=== PATIENT | female | born 1955 | race Caucasian/White ===

== ENCOUNTER → 2018-01-15 | Outpatient (CLI) | payer OTHER ==
--- NOTE | 2018-01-15 09:19 | RAD ---
Three-view lumbar spine series History: Back pain. Disability determination. Comparison: CT study of the abdomen and pelvis dated April 02, 2013. Findings: There is a mild compression deformity of the L4 vertebral body which is new from the old CT study. However, that study is almost 5 years old and therefore the compression fracture is indeterminate with regard to acuteness. No discitis or osteolytic process or anterolisthesis is seen. There is degenerative endplate spurring and disc space narrowing at L1-2 and L2-3 and L3-4 and L4-5 and L5-S1. The transverse processes are intact. Surgical clips are seen within the upper abdomen. Anastomosis is present here as well. IMPRESSION: Mild compression fracture of L4 which is new since 2012. Mild to moderate degenerative lumbar spondylosis.
--- NOTE | 2018-01-15 09:21 | RAD ---
Two-view right knee study History: Right knee pain. Disability determination. Findings: No acute fracture or dislocation or osteolytic process is evident. There is mild joint space narrowing and spurring of the medial and lateral tibiofemoral joint compartments and the patellofemoral joint compartment. Small subchondral radiolucency of the upper patella is seen. This may represent a subchondral cyst secondary to chondromalacia patellae. There is no significant swelling of the suprapatellar bursa to indicate a joint effusion radiographically. IMPRESSION: Tricompartmental primary degenerative osteoarthritis.
== END | disposition home or self-care (01) ==
LOC: DXRAD 08:35
PROVIDERS: ATTEND Neuromusculoskeletal Medicine, Sports Medicine
DX: Z02.71 Encounter for disability determination (principal); M17.11 Unilateral primary osteoarthritis, right knee; M48.56XD Collapsed vertebra, not elsewhere classified, lumbar region, subsequent encounter for fracture with routine healing
CPT/HCPCS: 72100; 73560

== ENCOUNTER 2020-03-11 15:19 | Observation (INO) | payer MEDICARE, OTHER ==
[~2020-03-11] VITALS: Ht 162.6 cm; Wt 91.0 kg
[2020-03-11] MEDS ORDERED: ONDANSETRON PF 4 MG/2 ML VIAL. ONE (15:34)
[2020-03-11] MEDS ORDERED: IV NORMAL SALINE 1,000ML 1,000 ML IV SCH (15:35)
--- NOTE | 2020-03-11 15:40 | PHYS DOC ---
Past History Past Medical History: Cancer (Ovarian), Diabetes, High Cholesterol Past Surgical History: Hysterectomy, Knee Replacement Additional Past Surgical Histo: Subtotal colectomy Smoking: Non-smoker General Adult EDM: Chief Complaint: NAUSEA/VOMITING/DIARRHEA HPI: HPI: Patient is a 64-year-old female presents to the emergency department for evaluation. She states she has had recurrent episodes of vomiting and diarrhea, which have been ongoing for over a year, but she states her symptoms began getting bad again last night. Patient states that she called her PCP who referred her to emergency department for evaluation and possible admission. The patient denies any particular pain, denies any recent fevers, chills, bloody emesis or bloody stools. There are no alleviating or exacerbating factors to her symptoms. Review of Systems: Review of Systems: Constitutional: Denies fever or chills Eyes: Denies change in visual acuity HENT: Denies nasal congestion or sore throat Respiratory: Denies cough or shortness of breath Cardiovascular: Denies chest pain or edema GI: As per HPI : Denies dysuria Musculoskeletal: Denies back pain or joint pain Integument: Denies rash Neurologic: Denies headache, focal weakness or sensory changes Endocrine: Denies polyuria or polydipsia Lymphatic: Denies swollen glands Psychiatric: Denies depression or anxiety Heart Score: Risk Factors: Risk Factors: DM, Current or recent (<one month) smoker, HTN, HLP, family history of CAD, obesity. Risk Scores: Score 0 - 3: 2.5% MACE over next 6 weeks - Discharge Home Score 4 - 6: 20.3% MACE over next 6 weeks - Admit for Clinical Observation Score 7 - 10: 72.7% MACE over next 6 weeks - Early Invasive Strategies Current Medications: Current Meds: Current Medications Medications (Trade) Dose Ordered Sig/Cat Start Time Stop Time Status Last Admin Dose Admin Ondansetron HCl (Zofran) 4 mg STK-MED ONCE 03/11/20 15:34 03/11/20 15:34 DC Physical Exam: PE: PHYSICAL EXAM: CONSTITUTIONAL: Well developed, well nourished HEAD: normocephalic, atraumatic EENT: PERRL, EOMI. Conjunctivae normal color, sclerae non-icteric; moist mucous membranes. NECK: Supple, non-tender; no meningismus. LUNGS: Lungs CTA, breathing even and unlabored. Normal air movement. HEART: Regular rate and rhythm, no murmur CHEST: No deformity; non-tender ABDOMEN: The abdomen is soft, there is diffuse tenderness to palpation of the entire abdomen without focal tenderness, rebound, guarding, bowel sounds are present EXTREM: Normal ROM; no deformity, no calf tenderness. Normal pulses palpable in all extremities. There is no pedal edema. SKIN: No rash; no diaphoresis NEURO: Alert; normal speech and cognition; CN's grossly intact; strength grossly intact without focal deficit. BACK: No CVA TTP. Current Patient Data: Labs: Laboratory Tests Test 03/11/20 15:29 03/11/20 15:40 White Blood Count 8.1 x10^3/uL Red Blood Count 4.19 x10^6/uL Hemoglobin 12.2 g/dL Hematocrit 37.0 % Mean Corpuscular Volume 88 fL Mean Corpuscular Hemoglobin 29 pg Mean Corpuscular Hemoglobin Concent 33 g/dL Red Cell Distribution Width 13.4 % Platelet Count 277 x10^3/uL Neutrophils (%) (Auto) 66 % Lymphocytes (%) (Auto) 26 % Monocytes (%) (Auto) 5 % Eosinophils (%) (Auto) 3 % Basophils (%) (Auto) 0 % Neutrophils # (Auto) 5.4 x10^3uL Lymphocytes # (Auto) 2.1 x10^3/uL Monocytes # (Auto) 0.4 x10^3/uL Eosinophils # (Auto) 0.2 x10^3/uL Basophils # (Auto) 0.0 x10^3/uL Sodium Level 140 mmol/L Potassium Level 4.2 mmol/L Chloride Level 100 mmol/L Carbon Dioxide Level 28 mmol/L Anion Gap 12 Blood Urea Nitrogen 20 mg/dL Creatinine 1.0 mg/dL Estimated GFR (Cockcroft-Gault) 56.2 BUN/Creatinine Ratio 20 Glucose Level 143 mg/dL Lactic Acid Level 1.6 mmol/L Calcium Level 9.4 mg/dL Total Bilirubin 0.4 mg/dL Aspartate Amino Transf (AST/SGOT) 34 U/L Alanine Aminotransferase (ALT/SGPT) 30 U/L Alkaline Phosphatase 115 U/L Total Protein 8.2 g/dL Albumin 3.9 g/dL Albumin/Globulin Ratio 0.9 Lipase 235 U/L Urine Collection Type Unknown Urine Color Yellow Urine Clarity Clear Urine pH 5.5 Urine Specific [place] <=1.005 Urine Protein Neg Urine Glucose (UA) Neg mg/dL Urine Ketones (Stick) Neg mg/dL Urine Blood Neg Urine Nitrite Neg Urine Bilirubin Neg Urine Urobilinogen Dipstick 0.2 mg/dL Urine Leukocyte Esterase Trace Urine RBC 0 /HPF Urine WBC 1-4 /HPF Urine Squamous Epithelial Cells Occ /LPF Urine Bacteria Few /HPF Urine Hyaline Casts Few /HPF Urine Mucus Slight /LPF Current Medications Medications (Trade) Dose Ordered Sig/Cat Route PRN Reason Start Time Stop Time Status Last Admin Dose Admin Ondansetron HCl (Zofran) 4 mg STK-MED ONCE .ROUTE 03/11/20 15:34 03/11/20 15:34 DC Ondansetron HCl (Zofran) 4 mg 1X ONCE IVP 03/11/20 15:45 03/11/20 15:49 DC 03/11/20 15:43 Sodium Chloride 1,000 ml @ 1,000 mls/hr 1X ONCE IV 03/11/20 15:45 03/11/20 16:44 UNV Sodium Chloride 1,000 ml @ 1,000 mls/hr Q1H IV 03/11/20 15:35 03/11/20 16:34 03/11/20 15:40 EKG: EKG: Normal sinus rhythm with a normal rate, normal axis, normal intervals, there are no acute ischemic ST/T changes. [] Radiology/Procedures: Radiology/Procedures: PROCEDURE: CT ABDOMEN PELVIS WO CONTRAST EXAM: CT Abdomen and Pelvis without IV contrast CLINICAL HISTORY: Abdominal pain, nausea, vomiting, diarrhea. COMPARISON: none TECHNIQUE: Helical CT of the abdomen and pelvis was performed without the administration of IV contrast. Axial, coronal and sagittal reformatted images were generated. ---PQRS compliance statement - One or more of the following individualized dose reduction techniques were utilized for this study: 1. Automated exposure control 2. Adjustment of the mA and/or kV according to patient size 3. Use of iterative reconstruction technique--- FINDINGS: Lack of intravenous contrast limits evaluation of solid organs, vasculature, and lymph nodes. Lower chest: Linear opacities are seen in the right greater than left lower lobes likely scarring/atelectasis. Heart is not enlarged. Coronary calcifications are seen. Abdomen and pelvis: Liver and biliary system: No focal liver lesion. There is been a cholecystectomy. No biliary ductal dilatation. Spleen: Unremarkable Pancreas: Unremarkable Adrenal glands: Unremarkable Kidneys: Punctate nonobstructing calculi within the left kidney. No hydronephrosis or hydroureter. No definite renal lesion. Lymph nodes/retroperitoneum: No abdominal or pelvic lymphadenopathy. Vessels: Aortic calcifications are seen. Bowel/Peritoneal cavity: Postsurgical changes are seen along the greater curvature of the stomach. In addition anastomotic line is seen within the central abdomen. No small or large bowel dilatation. No bowel obstruction. Colonic diverticula are seen. No evidence for acute diverticulitis. No abdominal or pelvic ascites. Abdominal wall: A ventral abdominal mesh hernia repair changes are seen. Bladder: Diffuse bladder wall thickening may be seen with cystitis. Bones: Degenerative changes of the lower lumbar spine. Trace height loss of the L4 vertebral body may represent age-indeterminate compression fracture. Multilevel Schmorl's nodes are seen. IMPRESSION: 1. No bowel obstruction. 2. Colonic diverticula are seen without evidence for acute diverticulitis. 3. Bladder wall thickening likely cystitis. 4. Age-indeterminate compression fracture of L4. [] Course & Med Decision Making: Course & Med Decision Making Pertinent Labs and Imaging studies reviewed. (See chart for details) [] 4:25 PM: The patient's condition remains stable. I spoke with her PCP who would like her admitted to the hospital for further evaluation and treatment. Kalia Disclaimer: Kalia Disclaimer: This electronic medical record was generated, in whole or in part, using a voice recognition dictation system. Departure Departure: Impression: Primary Impression: Nausea vomiting and diarrhea Disposition: ADMITTED INPATIENT Admitting Physician: French Paul Condition: STABLE Referrals: FRENCH PAUL MD (PCP) FANNY SALAZAR MD Mar 11, 2020 15:40
[2020-03-11] MEDS ORDERED: IV NORMAL SALINE 1,000ML 1,000 ML IV ONE (15:45)
[2020-03-11] MEDS ORDERED: ONDANSETRON PF 4 MG/2 ML VIAL. IVP ONE (15:45)
[2020-03-11 15:49] LABS: BASO % 0 % (0-3); EOS # 0.2 x10^3/uL (0.0-0.7); EOS % 3 % (0-3); HEMOGLOBIN 12.2 g/dL (12.0-15.5); LYMPH # 2.1 x10^3/uL (1.0-4.8); LYMPH % 26 % (24-48); MEAN CORPUSCULAR HEMOGLOBIN 29 pg (25-35); MEAN CORPUSCULAR HGB CONC 33 g/dL (31-37); MEAN CORPUSCULAR VOLUME 88 fL (79-100); MONO # 0.4 x10^3/uL (0.0-1.1); MONO % 5 % (0-9); NEUT # 5.4 x10^3uL (1.8-7.7); NEUT % 66 % (31-73); PLATELET COUNT 277 x10^3/uL (140-400); RED BLOOD COUNT 4.19 x10^6/uL (3.50-5.40); RED CELL DISTRIBUTION WIDTH 13.4 % (11.5-14.5); WHITE BLOOD COUNT 8.1 x10^3/uL (4.0-11.0)
[2020-03-11 15:54] LABS: COLOR,URINE YELLOW
[2020-03-11 15:55] LABS: BILIRUBIN,URINE NEG (NEG); CLARITY,URINE CLEAR; GLUCOSE,URINE NEG (NEG); NITRITE,URINE NEG (NEG); UROBILINOGEN,URINE 0.2 mg/dL (0.2 mg/dL)
[2020-03-11 15:57] LABS: CALCIUM 9.4 mg/dL (8.5-10.1); GFR 56.2; POTASSIUM 4.2 mmol/L (3.5-5.1)
[2020-03-11 16:01] LABS: RBC,URINE 0 /HPF (0-2)
[2020-03-11 16:02] LABS: BACTERIA,URINE FEW /HPF (0-FEW); HYALINE CASTS, URINE FEW /HPF; SQUAMOUS EPITHELIAL CELL,UR OCC /LPF
[2020-03-11 16:17] LABS: TOTAL PROTEIN 8.2 g/dL (6.4-8.2)
[2020-03-11 16:18] LABS: ALBUMIN 3.9 g/dL (3.4-5.0); ALBUMIN/GLOBULIN RATIO 0.9 (1.0-1.7); TOTAL BILIRUBIN 0.4 mg/dL (0.2-1.0)
--- NOTE | 2020-03-11 16:20 | RAD ---
EXAM: CT Abdomen and Pelvis without IV contrast CLINICAL HISTORY: Abdominal pain, nausea, vomiting, diarrhea. COMPARISON: none TECHNIQUE: Helical CT of the abdomen and pelvis was performed without the administration of IV contrast. Axial, coronal and sagittal reformatted images were generated. ---PQRS compliance statement - One or more of the following individualized dose reduction techniques were utilized for this study: 1. Automated exposure control 2. Adjustment of the mA and/or kV according to patient size 3. Use of iterative reconstruction technique--- FINDINGS: Lack of intravenous contrast limits evaluation of solid organs, vasculature, and lymph nodes. Lower chest: Linear opacities are seen in the right greater than left lower lobes likely scarring/atelectasis. Heart is not enlarged. Coronary calcifications are seen. Abdomen and pelvis: Liver and biliary system: No focal liver lesion. There is been a cholecystectomy. No biliary ductal dilatation. Spleen: Unremarkable Pancreas: Unremarkable Adrenal glands: Unremarkable Kidneys: Punctate nonobstructing calculi within the left kidney. No hydronephrosis or hydroureter. No definite renal lesion. Lymph nodes/retroperitoneum: No abdominal or pelvic lymphadenopathy. Vessels: Aortic calcifications are seen. Bowel/Peritoneal cavity: Postsurgical changes are seen along the greater curvature of the stomach. In addition anastomotic line is seen within the central abdomen. No small or large bowel dilatation. No bowel obstruction. Colonic diverticula are seen. No evidence for acute diverticulitis. No abdominal or pelvic ascites. Abdominal wall: A ventral abdominal mesh hernia repair changes are seen. Bladder: Diffuse bladder wall thickening may be seen with cystitis. Bones: Degenerative changes of the lower lumbar spine. Trace height loss of the L4 vertebral body may represent age-indeterminate compression fracture. Multilevel Schmorl's nodes are seen. IMPRESSION: 1. No bowel obstruction. 2. Colonic diverticula are seen without evidence for acute diverticulitis. 3. Bladder wall thickening likely cystitis. 4. Age-indeterminate compression fracture of L4. Electronically signed by: Jose Luis Watkins MD (03/11/2020 4:16 PM) GLORIA
--- NOTE | 2020-03-11 16:42 | EKG ---
[address] [address] Test Date: 2020-03-11 Test Time: 16:20:08 Pat Name: RUSSELL PELAEZ Department: Room: Gender: F [employer] Super[employer]: : [id number] Requested By: FANNY SALAZAR Order Number: [id number] Reading MD: Han Matias Measurements Intervals [place] Rate: 58 P: 35 NE: 180 QRS: 31 QRSD: 88 T: 38 QT: 458 QTc: 453 Interpretive Statements SINUS RHYTHM NORMAL ECG RI6.02 No previous ECG available for comparison Electronically Signed On 03-12-2020 14:06:37 CDT by Han Matias
[2020-03-11 18:34] VITALS: BP 121/79
--- NOTE | 2020-03-11 18:49 | NUR ---
nursing admit note Patient arrived via ems cart to room. Patient does not currently have complaint of pain. Patient states diarrhea this am, more frequent n/v diarrhea within the last 6 months. Patient presents alert, orientated and in stable condition. Dina Lorenzo RN
[2020-03-11 19:21] VITALS: BP 108/70
[2020-03-11] MEDS ORDERED: METF10007 PO (19:35)
[2020-03-11] MEDS ORDERED: CHOL400T36 PO (19:35)
[2020-03-11] MEDS ORDERED: DULO60CA6 PO (19:35)
[2020-03-11] MEDS ORDERED: PSYL3.4P PO (19:35)
[2020-03-11] MEDS ORDERED: CALC1CAP7 PO (19:35)
[2020-03-11] MEDS ORDERED: FLUT16SP21 NS (19:35)
[2020-03-11] MEDS ORDERED: CRESTOR40 MG PO (19:35)
[2020-03-11] MEDS ORDERED: ONDA-84 PO (19:35)
[2020-03-11] MEDS ORDERED: HYDR-2145 PO (19:35)
[2020-03-11] MEDS ORDERED: ALCA3DRO OP (19:35)
[2020-03-11] MEDS ORDERED: FLUO40CA2 PO (19:35)
[2020-03-11] MEDS ORDERED: OMEG-33 PO (19:35)
[2020-03-11] MEDS ORDERED: LEVO25TA4 PO (19:35)
[2020-03-11] MEDS ORDERED: IBUP800T19 PO (19:35)
[2020-03-11] MEDS ORDERED: OMEP40CA45 PO (19:35)
[2020-03-11] MEDS ORDERED: MULT-328 PO (19:35)
[2020-03-11] MEDS ORDERED: CETI10TA16 PO (19:35)
[2020-03-11] MEDS ORDERED: FLUTICASONE 50MCG/NASAL SPRAY 16GM BOTTLE. NS PRN (19:45)
[2020-03-11] MEDS ORDERED: NON FORMULARY ITEM (Ondansetron Hcl 4 MG) PO PRN (19:45)
[2020-03-11] MEDS ORDERED: ALCAFTADINE OP PRN (19:45)
[2020-03-11] MEDS ORDERED: ZOLPIDEM 5 MG TABLET. PO PRN (20:00)
[2020-03-11] MEDS ORDERED: ONDANSETRON ODT 4 MG TAB.RAPDIS PO PRN (20:15)
[2020-03-11] MEDS: METOCLOPRAMIDE HCL 10 MG/10 ML SOLUTION. PO SCH (20:33)
[2020-03-11] MEDS: IV NORMAL SALINE 1,000ML 1,000 ML IV SCH (20:41)
--- NOTE | 2020-03-11 21:09 | NUR ---
Nursing Note Pt in bed at shift change now has fluids of NS running at 75 per hour in the left AC IV. Pleasant calm and cooperative. States she doesn't need nausea meds at this time and is currently eating a pork chop. No nausea, vomiting or abdominal pain right now. Has good bowel sounds. Denies pain except for what she describes as neuropathy.
[2020-03-11] MEDS ORDERED: ACETAMINOPHEN 500 MG TABLET PO PRN (22:00)
[2020-03-11 22:40] VITALS: BP 99/66
--- NOTE | 2020-03-11 22:45 | NUR ---
Nursing Note Pt complained of nausea requesting zofran.
[2020-03-12 06:13] VITALS: BP 101/67
[2020-03-12] MEDS: METOCLOPRAMIDE HCL 10 MG/10 ML SOLUTION. PO SCH (07:30)
[2020-03-12] MEDS ORDERED: PANTOPRAZOLE 40 MG TABLET. PO SCH (07:30)
[2020-03-12] MEDS ORDERED: LEVOTHYROXINE 25 MCG TABLET. PO SCH (07:30)
[2020-03-12] MEDS: IV NORMAL SALINE 1,000ML 1,000 ML IV SCH (08:56)
[2020-03-12] MEDS ORDERED: DULoxetine HCL 60 MG CAPSULE.DR PO SCH (09:00)
[2020-03-12] MEDS ORDERED: NON FORMULARY ITEM (Rosuvastatin Calcium (Crestor) 40 MG) PO SCH (09:00)
[2020-03-12] MEDS ORDERED: PSYLLIUM HUSK PO SCH (09:00)
[2020-03-12] MEDS ORDERED: CETIRIZINE HCL 10 MG TABLET PO SCH (09:00)
[2020-03-12] MEDS ORDERED: DULoxetine HCL 20 MG CAPSULE.DR PO SCH (09:00)
[2020-03-12] MEDS ORDERED: ASPARTAME PO SCH (09:00)
[2020-03-12] MEDS ORDERED: FLUoxetine HCL 20 MG CAPSULE PO SCH (09:00)
[2020-03-12] MEDS ORDERED: DULO20CA50 PO (09:18)
[2020-03-12] MEDS ORDERED: METO10SO PO (09:18)
[2020-03-12 09:53] VITALS: BP 99/64
--- NOTE | 2020-03-12 10:06 | PN ---
DATE: SUBJECTIVE: The patient has been having severe nausea and vomiting, which became increasingly worse along with diarrhea here in the last week or so, she was unable to keep fluids. She was pale and diaphoretic when she was in the office and said she was unable to take any food or fluids. She is a diabetic and this became somewhat of an issue. She was admitted for observation. OBJECTIVE: Her blood pressure at one time did drop down to 99/66 and the patient remained afebrile; however, the patient did have severe abdominal discomfort. She has been seen by Dr. Zapata. The patient was admitted, placed on IV fluids, given Reglan to help her with her gastroparesis. The patient made good progress and was discharged home. IMPRESSION: Dehydration, nausea, vomiting, gastroparesis, type 2 diabetes, morbid obesity. PLAN: The patient will be discharged home, follow up as an outpatient. Major adjustments to her medications were made as far as stopping some and adding others to it. Please see the MRAD. She will be on a diabetic diet. Make further evaluation on her as indicated. FRENCH CHINCHILLA MD DR: GEOVANNA/neville JOB#: [id number] / [id number]
[2020-03-12 11:15] LABS: FECAL OB PT NEGATIVE (NEG)
== END 2020-03-12 11:25 | disposition home or self-care (01) ==
LOC: ER 15:19 → 1 SOUTH 16:27 → INTOOBSV 16:27
PROVIDERS: ADMIT Family Medicine; ATTEND Family Medicine
DX: R11.2 Nausea with vomiting, unspecified (principal); E86.0 Dehydration; K31.84 Gastroparesis; K57.30 Diverticulosis of large intestine without perforation or abscess without bleeding; E11.43 Type 2 diabetes mellitus with diabetic autonomic (poly)neuropathy; E66.01 Morbid (severe) obesity due to excess calories; E78.00 Pure hypercholesterolemia, unspecified; M48.56XA Collapsed vertebra, not elsewhere classified, lumbar region, initial encounter for fracture; Z90.710 Acquired absence of both cervix and uterus; Z96.659 Presence of unspecified artificial knee joint; Z79.899 Other long term (current) drug therapy
CPT/HCPCS: 36415; 74176; 80053; 81001; 82274; 83036; 83605; 83690; 85025; 87045; 87086; 87177; 87209; 93005; 96361; 96374; 99285; G0378; J2405; Q0162; G0379; J7030